=== PATIENT | female | born 1970 | race Two or more races ===

== ENCOUNTER 2020-01-23 10:20 | Outpatient (REF) | payer OTHER, SELFPAY | END 2020-01-23 10:21 | disposition home or self-care (01) | LOC: HO.LAB 10:20 | PROVIDERS: Visit Provider Internal Medicine | DX: Z20.828 Contact with and (suspected) exposure to other viral communicable diseases (principal) | CPT/HCPCS: C9803; U0003 ==

== ENCOUNTER 2020-02-27 16:37 | Emergency (ER) | payer MEDICAID, SELFPAY ==
[2020-02-27 17:16] VITALS: BP 115/77; PULSE 90; RESP 16; TEMP 36.9; O2SAT 98; BMI 28.3
--- NOTE | 2020-02-27 20:06 | ED_ITS ---
HPI - Skin/Abscess/Foreign Bdy General Chief complaint: Skin/Abscess/Foreign Body Stated complaint: Rash Time Seen by Provider: 02/27/20 20:06 Source: patient Mode of arrival: ambulatory History of Present Illness complaint: rash Onset (ago): day(s) Tetanus up to date: yes Location: RLE (Right groin area) Severity scale (1-10): 5 Quality: burning and pruritic Relieving factors: none and topical medication Context: none Associated symptoms: denies other symptoms Treatments prior to arrival: none Related Data Previous Rx's Medication Instructions Recorded doxycycline monohydrate 100 mg PO BID 7 Days #14 cap 02/27/20 nystatin 1 appl TOPICAL TID #30 g 02/27/20 Allergies Allergy/AdvReac Type Severity Reaction Status Date / Time No Known Allergies Allergy Verified 02/27/20 17:15 Review of Systems Review of Systems: Constitutional: No Weight loss, No Fever, No Chills, No Night Sweats, No Fatigue, No Malaise ENT/Mouth: No Hearing loss, No Ear Pain, No Nasal Congestion, No Sinus Pain, No Hoarseness, No sore throat, No Rhinorrhea, No Swallowing Difficulty Eyes: No Eye Pain, No Swelling, No Redness, No Foreign Body, No Discharge, No Vision Changes Cardiovascular: No Chest Pain, No SOB, No Dyspnea on Exertion, No Orthopnea, No Edema, No Palpitations Respiratory: No Cough, No Sputum, No Wheezing, No Smoke Exposure, No Dyspnea Gastrointestinal: No abdominal Pain Genitourinary: no irregular bleeding, No Dysuria, No Urinary Frequency, No He maturia, No Urinary Incontinence, No Urgency, No Flank Pain, No Urinary Flow Changes, No Hesitancy Musculoskeletal: No joint pain, No Myalgias, No Joint Swelling Skin: No Skin Lesions, No rash Neuro: No Weakness, No Numbness, No Paresthesias, No Loss of Consciousness, No Dizziness, No Headache Psych: No Social Issues Heme/Lymph: No Bruising, No Bleeding,No Lymphadenopathy Endocrine: No Polyuria, No Polydipsia, No Temperature Intolerance Yes all other systems are reviewed and are negative [facility] Past Medical History Medical History (Updated 02/27/20 @ 20:24 by Chester Maria NP) Heel spur Rotator cuff arthropathy of left shoulder Surgical History (Updated 02/27/20 @ 17:19 by Guera Salazar) History of colposcopy History of hysterectomy Social History Social History Alcohol intake: never Smoking Status: Current every day smoker Use of substances other than those prescribed or required for medical reasons: No Advance Directives: No Advance Directives Information Provided: Yes Physical Exam Vital Signs: Vital Signs: Last Vital Signs Temp 98.4 F 02/27/20 17:16 Pulse 90 02/27/20 17:16 Resp 16 02/27/20 17:16 BP 115/77 02/27/20 17:16 Pulse Ox 98 02/27/20 17:16 Body Mass Index 28.3 reviewed Const: General: cooperative and healthy appearing; No acute distress or intoxicated appearing Nutritional Appearance: average body habitus Orientation/consciousness: patient oriented x3 HENMT: Head: Yes normal to inspection Ears: hearing grossly normal bilaterally Eyes: General: appearance normal, both eyes and all related structures Visual Masterson: normal visual masterson by confrontation Neck: Neck: Yes normal visual inspection, No positive Brudzinski's sign, No positive Kernig's sign and No tender Thyroid: Thyroid normal Chest: Chest palpation & inspection: normal inspection of the chest Resp: Effort & Inspection: normal respiratory effort Cardio: Jugular venous distension: no JVD Skin: Other: Declined physical examination of the groin area but has pictures which she took at home and showed me which is consistent with candidal type infection in the groin area where there is slightly erythematous and macerated area. No induration or discharge or abscess. Neuro: General: patient oriented x3 Extrem: General: Yes normal to inspection Discharge Plan Discharge Clinical Impression: Shae rash of groin Patient Disposition: Home, Self-Care Instructions: Skin Yeast Infection (ED) Additional Instructions: Topical nystatin cream as prescribed There is no signs of infection but as requested and I have educated you if there is any worsening in the symptoms he can start the oral antibiotic as prescribed Have recheck in 1-2 weeks to her primary care doctor Return if any concerns or worsening symptoms Thank you Prescriptions: New nystatin 100,000 unit/gram cream 1 appl topical TID Qty: 30 RF: 1 doxycycline monohydrate 100 mg capsule 100 mg PO BID 7 Days Qty: 14 RF: 0 Referrals: ED Physician,Generic [Emergency Provider] - 1 week ([facility])
== END 2020-02-27 20:34 | disposition home or self-care (01) ==
PROVIDERS: Emergency Provider Emergency Medicine
DX: B37.2 Candidiasis of skin and nail (principal)
CPT/HCPCS: 99283; 99284

== ENCOUNTER 2020-04-09 16:42 | Outpatient (REF) | payer MEDICAID, SELFPAY | END 2020-04-09 16:43 | disposition home or self-care (01) | LOC: HO.LAB 16:42 | PROVIDERS: Visit Provider Internal Medicine | DX: Z20.822 Contact with and (suspected) exposure to COVID-19 (principal) | CPT/HCPCS: 36415; C9803; U0003 ==

== ENCOUNTER → 2020-07-30 08:31 | Outpatient (REF) | payer MEDICAID, SELFPAY | LOC: HO.SL 08:31 | PROVIDERS: PCP Registered Nurse; Visit Provider Registered Nurse | DX: G47.33 Obstructive sleep apnea (adult) (pediatric) (principal) | CPT/HCPCS: 95806 ==

== ENCOUNTER 2022-04-16 21:40 | Emergency (ER) | payer OTHER, SELFPAY ==
--- NOTE | ~2022-04-16 | XR_ITS ---
EXAMINATION: XR KNEE, LEFT CLINICAL INFORMATION: Pain COMPARISON: None TECHNIQUE: AP, lateral, and both oblique views of the left knee. FINDINGS: No fracture or malalignment. Trace joint effusion. Minimal patellofemoral compartment arthrosis. Medial and lateral compartments are normal. No acute soft tissue findings. XR/XR knee LT 3V IMPRESSION: Minimal patellofemoral compartment arthrosis. Trace joint effusion. No acute osseous findings.
[2022-04-16 21:51] VITALS: BP 129/74; PULSE 81; RESP 18; TEMP 36.6; O2SAT 98; BMI 30.2
[2022-04-16 22:42] LABS: Glucose, Whole Blood 173 mg/dL (60-115)
--- NOTE | 2022-04-16 22:43 | ED_ITS ---
HPI - Extremity Problem General Chief complaint: Extremity Problem Stated complaint: Sharp in knee Time Seen by Provider: 04/16/22 22:37 Source: patient Mode of arrival: ambulatory Limitations: no limitations History of Present Illness HPI Narrative: 51-year-old female presents with 3 days of left knee pain. She does not report any significant injury, but does notice some swelling on the inside of her knee. She states that it hurts more when she walks than at rest. Complaint: extremity pain Onset (ago): day(s) (3) Pain Consistency: constant Location: left and knee Severity scale (1-10): 6 Quality: aching Radiation: none Relieving factors: elevation and rest Exacerbating factors: weight bearing, walking and palpation Associated symptoms: denies other symptoms Related Data Previous Rx's Medication Instructions Recorded doxycycline monohydrate 100 mg 100 mg PO BID 7 days #14 caps 02/27/20 capsule nystatin 100,000 unit/gram topical 1 appl topical TID #30 grams 02/27/20 cream Allergies Allergy/AdvReac Type Severity Reaction Status Date / Time No Known Allergies Allergy Verified 04/16/22 21:55 Review of Systems Review of Systems: Constitutional: No Fever, No Chills Cardiovascular: No Chest Pain, No SOB Respiratory: No Cough, No Dyspnea Musculoskeletal: positive left knee pain and swelling Skin: No Skin lacerations, No rash Neuro: No Weakness, No Numbness, No Paresthesias Yes all other systems are reviewed and are negative [facility] Past Medical History Attestation statement: The following information was validated with the patient. Source: old records reviewed Medical History Heel spur Rotator cuff arthropathy of left shoulder Surgical History History of colposcopy History of hysterectomy Social History Social History Alcohol intake: never Advance Directives: No Physical Exam Vital Signs: Vital Signs: Last Vital Signs Temp 97.8 F 04/16/22 21:51 Pulse 81 04/16/22 21:51 Resp 18 04/16/22 21:51 BP 129/74 04/16/22 21:51 Pulse Ox 98 04/16/22 21:51 O2 Del Method 04/16/22 21:51 BMI result Body Mass Index 30.2 Appearance: Alert. Oriented X3. No acute distress. Eyes: Pupils equal, round and reactive to light. CVS: Normal heart rate and rhythm. Pulses normal. Respiratory: No respiratory distress. Skin: Skin warm and dry. Normal skin color. Normal skin turgor. Extremities: Gait balance and coordinated. Full range of motion. Brisk capillary refill. No edema noted. Neuro: No motor deficit. No sensory deficit. Cranial nerves 2-12 intact. Course Course Course Narrative: 51-year-old female presents with 3 days of left knee pain and swelling. She does not report any physical injury, states that she has been walking quite a bit. She does not describe any loss of sensation, or discoloration to her toes. She does have full range of motion and has not lost balance. Will order x- rays. 23:20 x-rays indicate patellofemoral compartment arthrosis and trace joint effusion. No acute osseous findings. Will refer patient to orthopedics for further care and Javy wrap for comfort. Patient lives in [place], will follow up with Orthopedics in her home town. Patient verbalized understanding of and agrees to plan of care discharge home. Verbalized understanding of signs and symptoms indicating need for emergent intervention. Medications Administered Discontinued Medications Generic Name Dose Route Start Last Admin Trade Name Garretq PRN Reason Stop Dose Admin Ibuprofen 600 mg 04/16/22 22:42 04/16/22 22:48 Ibuprofen 600 Mg Tablet PO 04/16/22 22:43 600 mg ONCE ONE Administration Medical Decision Making Differential Diagnosis Differential Diagnoses: The differential diagnosis associated with the presentation includes Tendon or ligament injury, effusion, arthritis Lab Data [facility] Lab Attestation statement: I reviewed the patient's lab results. Labs: Lab Results 04/16/22 Range/Units 22:37 POC Glucose 173 H (60-115) mg/dL Independent Interpretation I performed an independent interpretation of an: Plain X-Ray Radiology Impression Discussion of test interpretation with radiology: I have reviewed the rad iologist's reading. Radiologist Impression: EXAMINATION: XR KNEE, LEFT CLINICAL INFORMATION: Pain? COMPARISON: None? TECHNIQUE: AP, lateral, and both oblique views of the left knee. FINDINGS: No fracture or malalignment. Trace joint effusion. Minimal patellofemoral compartment arthrosis. Medial and lateral compartments are normal. No acute soft tissue findings. XR/XR knee LT 3V IMPRESSION: Minimal patellofemoral compartment arthrosis. Trace joint effusion. No acute osseous findings. Prescription Management I considered prescription management with: Pain Medication Tylenol Motrin Discharge Plan Discharge Clinical Impression: Arthrosis of knee, Joint effusion of knee Patient Disposition: Home, Self-Care Instructions: Swollen Knee Joint (ED), R.I.C.E. Treatment (ED) Additional Instructions: You were evaluated for left knee pain. X-rays indicate joint arthrosis and a small effusion. Please follow-up with orthopedics. Rest ice and elevate the knee to help reduce pain and swelling. Apply Javy wrap as needed to help reduce swelling. Alternate Tylenol 650 mg every 6 hours and Motrin 600 mg every 6 hours as needed for pain and fever management. Consider taking these medications 3 hours apart so you have pain and fever management every 3 hours. Write down what time you take these medications to prevent accidental overdose. Thank you for choosing this emergency department for evaluation. Please follow-up with primary care physician as needed. Return to the emergency department for any new, concerning, or worsening symptoms. Prescriptions: No Action nystatin 100,000 unit/gram cream 1 appl topical TID Qty: 30 1RF doxycycline monohydrate 100 mg capsule 100 mg PO BID 7 Days Qty: 14 0RF Referrals: Sarah Gonzales PA-C [Physician Load Out Supervisor] - 1 week (Patellofemoral Arthrosis, joint effusion)
[2022-04-16] MEDS: Ibuprofen 600 MG TABLET PO (22:48)
--- NOTE | 2022-04-16 22:49 | PC.NURSE ---
medicated per provider order.
== END 2022-04-16 23:38 | disposition home or self-care (01) ==
PROVIDERS: Emergency Provider Internal Medicine
DX: M17.12 Unilateral primary osteoarthritis, left knee (principal); Z79.899 Other long term (current) drug therapy
CPT/HCPCS: 73562; 82947; 99283

== ENCOUNTER 2024-08-09 10:40 | Outpatient (REF) | payer OTHER, SELFPAY ==
--- OUTSIDE RECORDS SUMMARY | 2024-08-09 11:10 | XMS_ITS | Clinical Summary ---
Author Organization 175 [facility] Address [address] [place] [address] Phone Care Team Providers Care Vendor Management Specialist Name Role Phone Name, Jorge L BROOKS Primary Care Provider [phone] Allergies No known active allergies Medications diclofenac (Voltaren Arthritis Pain) 1 % topical gel Apply 4 g topically 2 (two) times a day. 240 g 1 5 09/30/19 25 Active ciclopirox (PENLAC) 8 % solution Apply topically at bedtime. Apply over nail and surrounding skin. Apply daily over previous coat. After seven (7) days, may remove with alcohol and continue cycle. 6.6 mL 3 5 08/03/19 25 Encounters Date Type Department Care Team Description 07/31/2024 9:00 AM EDT Office Visit Orthopedic Surgery [facility] [address] [facility] [address] [place] [phone] Irvin Kidd, DPM Plantar fascial fibromatosis (Primary Dx); Dermatophytosis of nail; Ingrowing nail; Type II diabetes mellitus with peripheral circulatory disorder ([facility] V24, CMS/[facility] V28); Diabetic mononeuropathy simplex (CMS/[facility] V24, CMS/[facility] V28); Pain in toe of left foot; Pain in toe of right foot from Last 3 Months Social History Tobacco Use Types Packs/Day Years Used Date Smoking Tobacco: Never Assessed Comments Unknown Sex and Gender Information Value Date Recorded Sex Assigned at Not on file Legal Sex Female 2:18 PM EST Gender Identity Not on file Sexual Orientation Not on file Last Filed Vital Signs Vital Sign Reading Time Taken Comments Blood Pressure - - Pulse - - Temperature - - Respiratory Rate - - Oxygen Saturation - - Inhaled Oxygen Concentration - - Weight 59 kg (130 lb) 07/31/2024 8:29 AM EDT Height 152.4 cm (5') 07/31/2024 8:29 AM EDT Body Mass Index 25.39 07/31/2024 8:29 AM EDT Plan of Treatment Upcoming Encounters Date Type Department Care Team (Late st Contact Info) Description 09/03/2024 8:15 AM EDT Office Visit Orthopedic Surgery - [place] [address] [phone] Irvin Kidd, DPM [address] [address] Health Maintenance Due Date Last Done Comments Breast Cancer Screening 1972 Diabetes: Annual Foot Exam 1982 Diabetes: Annual Retina Eye Exam 1982 Hepatitis B Vaccines (1 of 3 - 19+ 3-dose series) 08/30/1991 Cervical Cancer Screening: P ap Smear 1993 Zoster Vaccines (2 of 2) 02/07/2023 12/13/2022 COVID-19 Vaccine (3 - 2023-2 5 season) 2023 07/29/2020, 07/08/2020 Colorectal Cancer Screening: Colonoscopy 05/02/2024 Depression Screening 05/02/2024 Diabetes: Annual Urine Albumin-Creatinine Ratio (uACR) 05/02/2024 Hepatitis C Screening 05/02/2024 Social Influencers of Health Screening 05/02/2024 Influenza Vaccine (Season Ended) 2024 12/13/2022, 01/26/2022, 03/16/2021 Diabetes: Blood Sugar Contro l Test (HGBA1C) 12/18/2024 06/18/2024, 03/26/2024, 05/06/2020 Diabetes: Annual GFR (Glomerular Filtration Rate) 03/26/2025 03/26/2024 Cholesterol Screening (Lipid Panel) 03/26/2029 03/26/2024, 05/06/2020 DTaP,Tdap,and Td Vaccines (2 - Td or Tdap) 01/13/2031 01/13/2021 HIV Screening Completed 01/13/2021 Pneumococcal Vaccine: 50+ Years Completed 12/13/2022, 01/13/2021 Pneumococcal Vaccine: Pediatrics (0 to 5 Years) and At-Risk Patients (6 to 64 Years) Completed 12/13/2022, 01/13/2021 HIB Vaccines Aged Out No longer eligi ble based on patient's age to complete this topic HPV Vaccines Aged Out No longer eligi ble based on patient's age to complete this topic Hepatitis A Vaccines Aged Out No long er eligible based on patient's age to complete this topic IPV Vaccines Aged Out No longer eligi ble based on patient's age to complete this topic MMR Vaccines Aged Out No longer eligi ble based on patient's age to complete this topic Meningococcal ACWY Vaccine Aged Out N o longer eligible based on patient's age to complete this topic Meningococcal B Vaccine Aged Out No l onger eligible based on patient's age to complete this topic RSV Immunization Patients Under 20 months Aged Out No longer eligible b ased on patient's age to complete this topic Varicella Vaccines Aged Out No longer eligible based on patient's age to complete this topic Insurance MEDICAID - [place] Care Teams Vendor Management Specialist Relationship Specialty Start Date End Date Name, MD Jorge L [address] [place] [address] PCP - General Internal Medicine 05/02/24
== END 2024-08-09 10:41 | disposition home or self-care (01) ==
LOC: HO.MAMMO 10:40
PROVIDERS: PCP Internal Medicine; Visit Provider Internal Medicine
DX: Z12.31 Encounter for screening mammogram for malignant neoplasm of breast (principal)
CPT/HCPCS: 77063; 77067

== ENCOUNTER → 2024-08-09 11:15 | Outpatient (BNV) | payer OTHER, SELFPAY | PROVIDERS: PCP Internal Medicine; Visit Provider Internal Medicine | DX: Z12.31 Encounter for screening mammogram for malignant neoplasm of breast (principal) | CPT/HCPCS: 77063; 77067 ==

== ENCOUNTER 2024-09-17 09:05 | Outpatient (REF) | payer MEDICAID, SELFPAY ==
--- OUTSIDE RECORDS SUMMARY | 2024-09-17 09:30 | XMS_ITS | Clinical Summary ---
Author Organization 175 [facility] Address [address] [place] [address] Phone Care Team Providers Care Welding Machine Operator Submerged Arc Name Role Phone Name, Jorge L BROOKS Primary Care Provider [phone] Allergies No known active allergies Medications diclofenac (Voltaren Arthritis Pain) 1 % topical gel Apply 4 g topically 2 (two) times a day. 240 g 1 5 09/30/19 25 Active Encounters Date Type Department Care Team Description 07/31/2024 9:00 AM EDT Office Visit Orthopedic Surgery - [place] 250 175 [facility] [address] [place] [phone] Irvin Kidd, DPM Plantar fascial fibromatosis (Primary Dx); Dermatophytosis of nail; Ingrowing nail; Type II diabetes mellitus with peripheral circulatory disorder (CMS/[facility] V24, CMS/[facility] V28); Diabetic mononeuropathy simplex (CMS/[facility] V24, CMS/[facility] V28); Pain in toe of [...] Upcoming Encounters Date Type Department Care Team ([facility] Contact Info) Description 10/10/2024 9:45 AM EDT Office Visit Orthopedic Surgery - [place] 250 175 [facility] 250 [place] [phone] Irvin Kidd, DPM 175 [facility] [address] [place] [address] Health Maintenance Due Date Last Done Comments Breast Cancer Screening 1972 Diabetes: Annual Foot Exam 1982 Diabetes: Annual Retina Eye Exam 1982 Hepatitis B Vaccines (1 of 3 - 19+ 3-dose series) 08/30/1991 Cervical Cancer Screening: P ap Smear 1993 Zoster Vaccines (2 of 2) 02/07/2023 12/13/2022 COVID-19 Vaccine (2023-2 5 season) 2023 07/29/2020, 07/08/2020 Colorectal Cancer [...] topic Insurance MEDICAID - [place] Care Teams Welding Machine Operator Submerged Arc Relationship Specialty Start Date End Date Name, MD Jorge L [address] [place] [address] PCP - General Internal Medicine 05/02/24
--- OUTSIDE RECORDS SUMMARY | 2024-09-17 09:30 | XMS_ITS | Encounter Summary ---
Author Organization [employer] Address [address] [facility] [address] [place] [address] Care Team Providers Care Shingles Roofer Name Role Phone Aurora Riley MD Primary Care Provider + Reason for Visit * Reason Onset Date Comments Med Refill 09/13/2024 Encounter Details Date Type Department Care Team (Late st Contact Info) Description 09/13/2024 Refill [facility] [address] [place] [phone] Jorge L Villegas MD [address] [place] [phone] Poorly controlled type 2 diabetes mellitus (CMS/HCC) Social History Tobacco Use Types Packs/Day Years Used Date Smoking Tobacco: Every Day Cigarettes Passive Smoke Exposure: Current Smokeless Tobacco: Never Alcohol Use Standard Drinks/Week Comments Never 0 (1 standard drink = 0.6 oz pur e alcohol) Comments No Sex and Gender Information Value Date Recorded Sex Assigned at Female 01/11/2022 10:37 AM EDT Legal Sex Female 10:37 AM EDT Gender Identity Female 01/11/2022 10:37 AM EDT Sexual Orientation Straight 01/11/2022 10 :37 AM EDT documented as of this encounter Plan of Treatment Upcoming Encounters Date Type Department Care Team (Late st Contact Info) Description 10/17/2024 10:30 AM EDT Office Visit [facility] [address] [place] [phone] Aurora Riley MD [address] [place], [place] [phone] 11/02/2024 9:15 AM EDT Office Visit [facility] [address] [place] [address] Renu Davidson, OD [address] [place] [address] documented as of this encounter Visit Diagnoses Diagnosis Poorly controlled type 2 diabetes mellitus (CMS/HCC) documented in this encounter Care Teams Shingles Roofer Relationship Specialty Start Date End Date Aurora Riley MD [address] [place] [phone] PCP - General Internal Medicine 06/19/24 documented as of this encounter
[2024-09-17 14:01] LABS: Anion Gap 13 (12-20)
[2024-09-17 14:06] LABS: Alanine Aminotransferase 35 U/L (0-31); Albumin Level 4.5 g/dL (3.5-5.0); Alkaline Phosphatase 93 U/L (39-117); Aspartate Amino Transferase 23 U/L (5-31); Blood Urea Nitrogen 16 mg/dL (9-16); Calcium 9.7 mg/dL (8.4-10.2); Carbon Dioxide 25 mmol/L (22-29); Chloride 107 mmol/L (96-108); Cholesterol 295 mg/dL (<200); Estimated Glomerular Filt Rate > 60; HDL Cholesterol 36 mg/dL (>40); Potassium 4.3 mmol/L (3.3-5.1); Sodium 141 mmol/L (135-145); Total Protein 7.5 g/dL (6.5-8.0); Triglycerides 214 mg/dL (<150)
[2024-09-17 14:25] LABS: Reflex LDLD? No
== END 2024-09-17 09:06 | disposition home or self-care (01) ==
LOC: HO.HHCL 09:05
PROVIDERS: PCP Internal Medicine; Visit Provider Internal Medicine
DX: E11.65 Type 2 diabetes mellitus with hyperglycemia (principal)
CPT/HCPCS: 36415; 80053; 80061; 82306; 84443